=== PATIENT | female | born 1980 | race Caucasian/White ===

== ENCOUNTER → 2018-11-28 | Outpatient (CLI) | payer OTHER ==
[2018-11-29 22:34] LABS: THYROGLOBULIN AB < 0.9 IU/mL (<4.0)
== END ==
LOC: OD 11:13
PROVIDERS: ATTEND Surgery
DX: E04.1 Nontoxic single thyroid nodule (principal); D86.9 Sarcoidosis, unspecified
CPT/HCPCS: 36415; 86376; 86800

== ENCOUNTER 2019-01-07 05:37 | Inpatient (IN) | payer OTHER ==
[2018-12-31 09:43] LABS: HEMATOCRIT 40.1 % (36.0-47.0); HEMOGLOBIN 13.4 g/dL (12.0-15.5); MEAN CORPUSCULAR HEMOGLOBIN 27.3 pg (27.0-33.4); MEAN CORPUSCULAR HGB CONC 33.6 g/dL (32.0-36.0); MEAN CORPUSCULAR VOLUME 81 fl (80-97); PLATELET COUNT 292 10^3/uL (150-450); RED BLOOD COUNT 4.93 10^6/uL (3.72-5.28); RED CELL DISTRIBUTION WIDTH 13.6 % (11.5-14.0); WHITE BLOOD COUNT 4.7 10^3/uL (4.0-10.5)
[2018-12-31 10:15] LABS: ANION GAP 9 (5-19); BLOOD UREA NITROGEN 15 mg/dL (7-20); CALCIUM 9.7 mg/dL (8.4-10.2); CARBON DIOXIDE 27 mmol/L (22-30); CHLORIDE 103 mmol/L (98-107); GLUCOSE 93 mg/dL (75-110); POTASSIUM 4.5 mmol/L (3.6-5.0)
[~2019-01-07 05:37] MED LIST: CEFAZOLIN 1 GM/D5W RTU 1 GM/50 ML RTUPB IV ONE; CEFAZOLIN 1 GM/D5W RTU 1 GM/50 ML RTUPB IV PRN; LACTATED RINGERS 1000 ML IV PRN; LIDOCAINE 0.5% INJ-PF (5 MG/ML) 50 ML SDV SUBCUT PRN
[2019-01-07] MEDS ORDERED: HYDROMORPHONE HCL INJ/PF 2 MG/ML AMPULE ONE (06:44)
[2019-01-07] MEDS ORDERED: PROPOFOL INJ 200 MG/20 ML VIAL IV ONE (06:45)
[2019-01-07] MEDS ORDERED: MIDAZOLAM 2 MG/2 ML INJ ONE (06:45)
[2019-01-07] MEDS ORDERED: FENTANYL CITRATE INJ/PF 100 MCG/2 ML AMPUL ONE (06:45)
[2019-01-07] MEDS ORDERED: ACETAMINOPHEN 1,000 MG/100 ML RTUPB IV ONE (06:45)
[2019-01-07] MEDS ORDERED: LIDOCAINE 2% INJ (20 MG/ML) 20 ML MDV ONE (06:47)
[2019-01-07] MEDS ORDERED: MICROFIBRILLAR COLLAGEN 1 GM PACK ONE (07:37)
[2019-01-07] MEDS ORDERED: FENTANYL CITRATE INJ/PF 100 MCG/2 ML AMPUL IV PRN ×3 (08:02)
[2019-01-07] MEDS ORDERED: MEPERIDINE HCL/PF INJ 25 MG/1 ML DISP.SYRIN IV PRN (08:02)
[2019-01-07] MEDS ORDERED: DIPHENHYDRAMINE HCL 50 MG/ML VIAL IV PRN (08:02)
[2019-01-07] MEDS ORDERED: PROMETHAZINE HCL INJ 25 MG/1 ML VIAL IV PRN (08:02)
[2019-01-07] MEDS ORDERED: PROMETHAZINE HCL INJ 25 MG/1 ML VIAL ONE (08:04)
[2019-01-07] MEDS ORDERED: RINGERS SOLUTION,LACTATED 1,000 ML IV PRN (10:27)
[2019-01-07] MEDS ORDERED: KETOROLAC TROMETHAMINE INJ/PF 30 MG/1 ML SDV IV PRN (10:28)
[2019-01-07] MEDS ORDERED: ONDANSETRON HCL INJ/PF 4 MG/2 ML SDV IV PRN (10:28)
[2019-01-07] MEDS ORDERED: KETOROLAC TROMETHAMINE 10 MG TABLET PO PRN (10:28)
[2019-01-07] MEDS: FENTANYL CITRATE INJ/PF 100 MCG/2 ML AMPUL ONE ×2 (10:45→10:50)
--- NOTE | 2019-01-07 10:54 | Operative Report ---
Operative Report DATE OF SURGERY: 01/07/19 PREOPERATIVE DIAGNOSIS: 1. 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 2. Strong family history of thyroid cancer POSTOPERATIVE DIAGNOSIS: Same OPERATION: Total thyroidectomy with isthmusectomy. SURGEON: EUFEMIA DEWITT LINSEED OIL REFINER: JULIUS LU ANESTHESIA: GA TISSUE REMOVED OR ALTERED: Right thyroid lobe; left thyroid lobe with isthmus COMPLICATIONS: None ESTIMATED BLOOD LOSS: 40 cc INTRAOPERATIVE FINDINGS: See below PROCEDURE: The patient was seen in the preop holding area with the neck was marked for standard transcervical incision. She was then taken to the main operating where general anesthesia was induced. Patient placed in the supine position, arms tucked, neck extended, shoulder roll into position. The neck was supposed, prepped and draped in sterile fashion. Of note prior to prepping, we repeated ultrasonography which confirmed the right dominant thyroid nodule. There was no evidence of extrathyroidal pathology. Surgical plan and surgical timeout were conducted. A standard transcervical incision was made approximately 6, 7 cm in length. Superior and inferior skin and fascial flaps were raised including the platysma muscle. The strap muscles were then divided in midline. We approached the right thyroid lobe initially. The sternohyoid and sternothyroid muscles were elevated off the anterior surface of the thyroid lobe. There was no evidence of invasion of the nodule through the capsule or into the strap muscles. Chang clamps were placed in the substance of the thyroid lobe and the thyroid lobe was reflected medially. Inferior pole vasculature was taken down between clips. Superior pole was similarly taken down in a uneventful fashion, reflecting the muscles laterally to gain access. A suitable site for division of the right thyroid lobe from the isthmus was chosen. Again vessels were cauterized and/or clipped as encountered. The parenchyma of the isthmus was divided with electrocautery. Repositioning the clamps, we worked in a circumferential fashion, elevating the right posterior thyroid surface off of the anterior and lateral trachea. The right inferior parathyroid gland was felt to have been seen in the right lower neck and left in situ. The right upper parathyroid gland was felt to be in the vicinity of the approach of the inferior thyroid artery. We stayed right on gland, dividing the inferior thyroid branches to the mid and upper section of the lateral aspect of the thyroid lobe. We did not definitively visualize the recurrent laryngeal nerve on the right side. We stayed on gland, working in a circumferential fashion, dividing the final attachments. The amount of parenchyma left on the right side was negligible. The right lobe was brought onto the back table, all clips removed, and a long suture placed in the lateral position, short suture placed in the superior position and the specimen was sent to pathology. He was evaluated by Dr. Davis Jacobson, and felt to contain the target nodule, consistent with differentiated papillary carcinoma. It did not appear to be invading the capsule. We went back to the operative bed and check for any mechanical bleeding there was none. A small gauze sponge was placed in the recesses of the wound. We now turned our attention to the left lobe. Patient was repositioned, exposure to the left anterior neck optimized with retractors. The strap muscles were elevated off of the anterior surface of the left lobe. Chang clamps were placed in the substance of the gland, the gland was retracted medially, and inferior pole attachments taken down between clips. The isthmus and left lobe came off of the anterior surface of the trachea uneventfully. Superiorly the anatomy was very similar to the right side, again with the superior pole being taken down very close to parenchymal substance between clips. The arborization of the inferior thyroid artery was witnessed, and respective branches clipped and divided as encountered. We did in fact visualize the recur rent left laryngeal nerve which was in its predictable location. The left thyroid lobe posteriorly was closely adherent to Ward's ligament and we were careful to stay right on the gland at this point of the dissection. The left recurrent laryngeal nerve was kept in visualization during this entire dissection. No cautery was used. We are careful not to apply undue traction. The gland was freed up in its entirety, brought onto the back table, clips removed and again a long suture placed in the lateral position and a short the superior position We returned to the wound bed check for any mechanical bleeding there was none. Clips appear to be in satisfactory position. The nerve was in its anatomic position. We brought the patient had a cervical extension, applied Avitene to the recess of the wound, and found that the wound was stable. Sponge and needle counts are correct. The neck was then closed in layers with strap muscles with 2-0 Vicryl, platysma and subcutaneous tissue with 3-0 Vicryl, then skin with Dermabond glue. Patient taught procedure well, extubated, taken to recovery in stable condition. The physician project administrative assistant, Ms. Martínez, provided assistance during this case by: Assisting with retracting tissue, instillation of local anesthesia and closure of skin incisions.
[2019-01-07] MEDS ORDERED: KETOROLAC TROMETHAMINE INJ/PF 30 MG/1 ML SDV ONE (11:10)
[2019-01-07] MEDS ORDERED: ACETAMINOPHEN INJ/PF 1000 MG/100 ML SDV IV SCH (12:00)
[2019-01-07] MEDS ORDERED: ACETAMINOPHEN 1,000 MG/100 ML RTUPB IV SCH (12:00)
[2019-01-07] MEDS ORDERED: SUCCINYLCHOLINE CHLORIDE INJ 200 MG/10 ML VIAL ONE (15:09)
[2019-01-07] MEDS ORDERED: ONDANSETRON HCL INJ/PF 4 MG/2 ML SDV ONE (15:09)
[2019-01-07] MEDS ORDERED: DEXAMETHASONE SOD PHOSPHATE INJ 4 MG/1 ML VIAL ONE (15:09)
[2019-01-07] MEDS ORDERED: ROCURONIUM BROMIDE INJ 50 MG/5 ML VIAL IV ONE (15:09)
[2019-01-07] MEDS: OXYCODONE-ACETAMINOPHEN 5-325 MG TABLET PO PRN ×3 (15:36→23:55)
[2019-01-07] MEDS: DOCUSATE SODIUM 100 MG CAPSULE PO SCH (18:18)
[2019-01-08] MEDS: OXYCODONE-ACETAMINOPHEN 5-325 MG TABLET PO PRN ×3 (03:55→11:56)
[2019-01-08 05:57] LABS: CALCIUM 8.6 mg/dL (8.4-10.2)
[2019-01-08] MEDS ORDERED: LEVOTHYROXINE SODIUM 0.05 MG TABLET PO SCH (06:00)
[2019-01-08] MEDS: DOCUSATE SODIUM 100 MG CAPSULE PO SCH (09:37)
[2019-01-08 13:03] VITALS: BP 100/43
--- NOTE | 2019-01-15 11:49 | DISCHARGE SUMMARY E ---
Discharge Summary NAME: NAHID OLEA : 1980 AGE: 38Y ADMITTED: 01/07/2019 DISCHARGED: 01/08/2019 REASON FOR ADMISSION: Papillary carcinoma of the thyroid gland. SUMMARY OF HOSPITALIZATION: The patient is a 38-year-old white female with a history of dominant right thyroid nodule, fine needle aspiration findings consistent with papillary carcinomas. Brought to same day surgery for total thyroidectomy. The procedure was performed by Dr. Alfaro on 01/07/2019. The patient tolerated the procedure well without complication. Postoperatively she did well, diet was advanced slowly. Calcium levels remained in the 8.5 to 9.1 range. She had minimal dysphonia, but no evidence of significant hoarseness. By the following morning she was doing well and felt ready for discharge home. FINAL DIAGNOSIS: Dominant right thyroid nodule consistent with papillary carcinoma, status post total thyroidectomy. DISPOSITION: The patient was discharged home in the care of family. PLAN: Follow up with Dr. Alfaro in approximately 1, take 175 mcg of Synthroid daily and pain medication as prescribed. DICTATING PHYSICIAN: EUFEMIA ALFARO M.D. [id number] PHY#: [id number] ID: [id number] JOB#: [id number] ACCT: [id number] cc:EUFEMIA ALFARO M.D. >
== END 2019-01-08 13:30 | disposition home or self-care (01) | DRG 627 ==
LOC: INOR 05:37 → EDSTATUS 07:30 → 4N 12:24
PROVIDERS: ADMIT Surgery; ATTEND Surgery
PROC: 0GTH0ZZ Resection of Right Thyroid Gland Lobe, Open Approach (ICD-10-PCS; 2019-01-07)
PROC: 0GTG0ZZ Resection of Left Thyroid Gland Lobe, Open Approach (ICD-10-PCS; 2019-01-07)
PROC: 0GTJ0ZZ Resection of Thyroid Gland Isthmus, Open Approach (ICD-10-PCS; principal; 2019-01-07 07:30)
DX: C73 Malignant neoplasm of thyroid gland (principal); F41.9 Anxiety disorder, unspecified; E66.3 Overweight; I87.301 Chronic venous hypertension (idiopathic) without complications of right lower extremity; Z88.6 Allergy status to analgesic agent; Z80.9 Family history of malignant neoplasm, unspecified; Z98.84 Bariatric surgery status; Z82.3 Family history of stroke
CPT/HCPCS: 320; 36415; 80048; 82040; 82310; 84132; 84703; 85027; 88307; 88331; J0131; J0330; J0690; J1100; J1170; J1885; J2250; J2405; J2550; J2704; J3010; J3490; J7120

== ENCOUNTER → 2019-01-09 | Outpatient (CLI) | payer OTHER | LOC: OD 11:19 | PROVIDERS: ATTEND Surgery | DX: E83.51 Hypocalcemia (principal) | CPT/HCPCS: 36415; 82310 ==

== ENCOUNTER → 2019-01-15 | Outpatient (CLI) | payer OTHER | LOC: OD 12:20 | PROVIDERS: ATTEND Surgery | DX: Z98.890 Other specified postprocedural states (principal) | CPT/HCPCS: 36415; 82310 ==

== ENCOUNTER → 2019-02-07 | Outpatient (CLI) | payer OTHER ==
[2019-02-07 10:27] LABS: FREE T3 3.62 pg/mL (2.77-5.27); FREE T4 (FREE THYROXINE) 1.68 ng/dL (0.78-2.19)
[2019-02-07 10:41] LABS: THYROID STIMULATING HORMONE 0.73 uIU/mL (0.47-4.68)
== END ==
LOC: OD 09:00
PROVIDERS: ATTEND Surgery
DX: E89.0 Postprocedural hypothyroidism (principal)
CPT/HCPCS: 36415; 82310; 84439; 84443; 84481

== ENCOUNTER 2019-02-08 11:16 | Emergency (ER) | payer OTHER ==
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
[2019-02-08] MEDS ORDERED: ASPIRIN 81 MG TABLET, CHEWABLE PO ONE (11:42)
[2019-02-08 12:13] LABS: ABSOLUTE BASOPHILS # (AUTO) 0.1 10^3/uL (0.0-0.2); ABSOLUTE EOSINOPHILS # (AUTO) 0.1 10^3/uL (0.0-0.6); ABSOLUTE LYMPHOCYTES (AUTO) 1.6 10^3/uL (0.5-4.7); ABSOLUTE MONOCYTES (AUTO) 0.5 10^3/uL (0.1-1.4); ABSOLUTE NEUT (AUTO) 3.4 10^3/uL (1.7-8.2); BASOPHILS % (AUTO) 0.9 % (0-2); EOSINOPHILS % (AUTO) 1.6 % (0-6); HEMATOCRIT 41.2 % (36.0-47.0); HEMOGLOBIN 13.5 g/dL (12.0-15.5); LYMPHOCYTES % (AUTO) 28.7 % (13-45); MEAN CORPUSCULAR HEMOGLOBIN 26.8 pg (27.0-33.4); MEAN CORPUSCULAR HGB CONC 32.9 g/dL (32.0-36.0); MEAN CORPUSCULAR VOLUME 82 fl (80-97); MONOCYTES % (AUTO) 9.1 % (3-13); PLATELET COUNT 328 10^3/uL (150-450); RED BLOOD COUNT 5.05 10^6/uL (3.72-5.28); SEGMENTED NEUTROPHILS % (AUTO) 59.7 % (42-78); TOTAL CELLS COUNTED % (AUTO) 100 %; WHITE BLOOD COUNT 5.7 10^3/uL (4.0-10.5)
[2019-02-08 12:31] LABS: ALANINE AMINOTRANSFERASE 30 U/L (9-52); ALBUMIN 3.9 g/dL (3.5-5.0); ALKALINE PHOSPHATASE 27 U/L (38-126); ANION GAP 12 (5-19); ASPARTATE AMINO TRANSFERASE 27 U/L (14-36); BILIRUBIN,DIRECT 0.2 mg/dL (0.0-0.4); BILIRUBIN,TOTAL 0.4 mg/dL (0.2-1.3); BLOOD UREA NITROGEN 10 mg/dL (7-20); CALCIUM 9.1 mg/dL (8.4-10.2); CARBON DIOXIDE 25 mmol/L (22-30); CHLORIDE 103 mmol/L (98-107); CREATINE KINASE 50 U/L (30-135); GLUCOSE 109 mg/dL (75-110); POTASSIUM 3.9 mmol/L (3.6-5.0); SODIUM 139.6 mmol/L (137-145)
--- NOTE | 2019-02-08 12:33 | RADIOLOGY REPORT (SQ) ---
EXAM DESCRIPTION: CHEST 2 VIEWS COMPLETED DATE/TIME: 02/08/2019 12:15 pm REASON FOR STUDY: chest pain COMPARISON: 12/23/2009 EXAM PARAMETERS: NUMBER OF VIEWS: two views TECHNIQUE: Digital Frontal and Lateral radiographic views of the chest acquired. RADIATION DOSE: NA LIMITATIONS: none FINDINGS: LUNGS AND PLEURA: No opacities, masses or pneumothorax. No pleural effusion. MEDIASTINUM AND HILAR STRUCTURES: No masses or contour abnormalities. HEART AND VASCULAR STRUCTURES: Heart normal size. No evidence for failure. BONES: No acute findings. HARDWARE: None in the chest. OTHER: No other significant finding. IMPRESSION: NO ACUTE RADIOGRAPHIC FINDING IN THE CHEST. TECHNICAL DOCUMENTATION: JOB ID: [id number] [employer]- All Rights Reserved Reading location - IP/workstation name: [email or web address]
[2019-02-08 12:44] LABS: CREATINE KINASE MB < 0.22 ng/mL (<4.55); TROPONIN I < 0.012 ng/mL
[2019-02-08 12:48] LABS: FREE T3 3.41 pg/mL (2.77-5.27); FREE T4 (FREE THYROXINE) 1.63 ng/dL (0.78-2.19)
[2019-02-08 13:02] LABS: THYROID STIMULATING HORMONE 0.65 uIU/mL (0.47-4.68)
[2019-02-08 13:51] LABS: APPEARANCE,URINE CLEAR; BILIRUBIN,URINE NEGATIVE (NEGATIVE); COLOR,URINE STRAW; GLUCOSE, URINE NEGATIVE (NEGATIVE); KETONES,URINE NEGATIVE (NEGATIVE); LEUKOCYTE ESTERASE,URINE NEGATIVE (NEGATIVE); NITRITE,URINE NEGATIVE (NEGATIVE); PROTEIN,URINE NEGATIVE (NEGATIVE); URINE SPECIFIC GRAVITY 1.006; UROBILINOGEN,URINE NEGATIVE mg/dL (<2.0)
[2019-02-08 13:59] LABS: URINE AMPHETAMINES SCREEN NEGATIVE; URINE BARBITURATES SCREEN NEGATIVE; URINE BENZODIAZEPINES SCREEN NEGATIVE; URINE COCAINE SCREEN NEGATIVE; URINE MARIJUANA (THC) SCREEN NEGATIVE; URINE METHADONE SCREEN NEGATIVE; URINE PHENCYCLIDINE SCREEN NEGATIVE
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
[2019-02-08 15:46] VITALS: BP 109/95
--- NOTE | 2019-02-08 22:36 | EKG REPORT ---
SEVERITY:- OTHERWISE NORMAL ECG - SINUS RHYTHM LOW VOLTAGE IN FRONTAL LEADS : Confirmed by: Linda Adams 08-Feb-2019 22:35:21
== END 2019-02-08 16:27 | disposition home or self-care (01) ==
LOC: ER 11:16
DX: R00.2 Palpitations (principal); R07.9 Chest pain, unspecified; R06.02 Shortness of breath; E89.0 Postprocedural hypothyroidism; Z98.890 Other specified postprocedural states; Z79.899 Other long term (current) drug therapy
CPT/HCPCS: 36415; 71046; 80053; 80307; 81001; 82550; 82553; 84439; 84443; 84481; 84484; 85025; 93005; 93010; 99285

== ENCOUNTER 2019-06-15 21:06 | Emergency (ER) | payer OTHER ==
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
[2019-06-15 21:41] LABS: ABSOLUTE BASOPHILS # (AUTO) 0.1 10^3/uL (0.0-0.2); ABSOLUTE EOSINOPHILS # (AUTO) 0.2 10^3/uL (0.0-0.6); ABSOLUTE LYMPHOCYTES (AUTO) 2.1 10^3/uL (0.5-4.7); ABSOLUTE NEUT (AUTO) 3.9 10^3/uL (1.7-8.2); BASOPHILS % (AUTO) 0.8 % (0-2); EOSINOPHILS % (AUTO) 2.2 % (0-6); HEMATOCRIT 40.7 % (36.0-47.0); HEMOGLOBIN 13.4 g/dL (12.0-15.5); LYMPHOCYTES % (AUTO) 29.4 % (13-45); MEAN CORPUSCULAR HEMOGLOBIN 26.5 pg (27.0-33.4); MEAN CORPUSCULAR VOLUME 81 fl (80-97); MONOCYTES % (AUTO) 13.5 % (3-13); PLATELET COUNT 347 10^3/uL (150-450); RED BLOOD COUNT 5.06 10^6/uL (3.72-5.28); RED CELL DISTRIBUTION WIDTH 13.9 % (11.5-14.0); SEGMENTED NEUTROPHILS % (AUTO) 54.1 % (42-78); TOTAL CELLS COUNTED % (AUTO) 100 %; WHITE BLOOD COUNT 7.2 10^3/uL (4.0-10.5)
[2019-06-15 21:59] LABS: ALBUMIN 4.1 g/dL (3.5-5.0); ALKALINE PHOSPHATASE 22 U/L (38-126); ANION GAP 12 (5-19); ASPARTATE AMINO TRANSFERASE 17 U/L (14-36); BILIRUBIN,DIRECT 0.1 mg/dL (0.0-0.4); BILIRUBIN,TOTAL 0.2 mg/dL (0.2-1.3); BLOOD UREA NITROGEN 16 mg/dL (7-20); CALCIUM 9.2 mg/dL (8.4-10.2); CARBON DIOXIDE 24 mmol/L (22-30); CHLORIDE 102 mmol/L (98-107); POTASSIUM 3.9 mmol/L (3.6-5.0); TOTAL PROTEIN 7.1 g/dL (6.3-8.2)
[2019-06-15 22:02] LABS: GLUCOSE 56 mg/dL (75-110)
[2019-06-15 22:41] LABS: APPEARANCE,URINE CLEAR; BILIRUBIN,URINE NEGATIVE (NEGATIVE); COLOR,URINE STRAW; GLUCOSE, URINE NEGATIVE (NEGATIVE); KETONES,URINE NEGATIVE (NEGATIVE); LEUKOCYTE ESTERASE,URINE TRACE (NEGATIVE); NITRITE,URINE NEGATIVE (NEGATIVE); PROTEIN,URINE NEGATIVE (NEGATIVE); URINE SPECIFIC GRAVITY 1.006; UROBILINOGEN,URINE NEGATIVE mg/dL (<2.0)
--- NOTE | 2019-06-15 22:50 | RADIOLOGY REPORT (SQ) ---
EXAM DESCRIPTION: CLINICAL HISTORY: 39 years Female, near syncope COMPARISON: 02/08/2019. FINDINGS: Borderline heart size. Prominence of the main pulmonary artery. No suspicious mediastinal widening. No acute lung pleural bone abnormalities. IMPRESSION: Suspected dilated main pulmonary artery possibly representing pulmonary hypertension. No acute findings.
[2019-06-16] MEDS ORDERED: PROMETHAZINE HCL 25 MG TABLET PO ONE
[2019-06-16 00:26] VITALS: BP 112/76
--- NOTE | 2019-06-16 08:12 | EKG REPORT ---
SEVERITY:- NORMAL ECG - SINUS RHYTHM : Confirmed by: Saira Dumont MD 16-Jun-2019 08:12:09
== END 2019-06-16 00:26 | disposition home or self-care (01) ==
LOC: ER 21:06
DX: E16.2 Hypoglycemia, unspecified (principal); R11.0 Nausea; R55 Syncope and collapse; Z88.6 Allergy status to analgesic agent; Z98.84 Bariatric surgery status
CPT/HCPCS: 36415; 71045; 80053; 81001; 82962; 83690; 84484; 84703; 85025; 93005; 93010

== ENCOUNTER 2019-07-31 23:08 | Emergency (ER) | payer OTHER ==
[2019-07-31] MEDS ORDERED: ONDANSETRON HCL INJ/PF 4 MG/2 ML SDV IV ONE (23:22)
[2019-07-31] MEDS ORDERED: NORMAL SALINE 1000 ML 1,000 ML IV ONE (23:22)
[2019-07-31] MEDS ORDERED: FENTANYL CITRATE INJ/PF 100 MCG/2 ML AMPUL IV ONE (23:22)
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
[2019-07-31 23:48] LABS: ABSOLUTE BASOPHILS # (AUTO) 0.1 10^3/uL (0.0-0.2); ABSOLUTE EOSINOPHILS # (AUTO) 0.1 10^3/uL (0.0-0.6); ABSOLUTE LYMPHOCYTES (AUTO) 1.3 10^3/uL (0.5-4.7); ABSOLUTE MONOCYTES (AUTO) 0.7 10^3/uL (0.1-1.4); ABSOLUTE NEUT (AUTO) 4.6 10^3/uL (1.7-8.2); BASOPHILS % (AUTO) 0.7 % (0-2); EOSINOPHILS % (AUTO) 1.3 % (0-6); HEMATOCRIT 37.9 % (36.0-47.0); HEMOGLOBIN 12.4 g/dL (12.0-15.5); LYMPHOCYTES % (AUTO) 19.7 % (13-45); MEAN CORPUSCULAR HGB CONC 32.6 g/dL (32.0-36.0); MEAN CORPUSCULAR VOLUME 80 fl (80-97); MONOCYTES % (AUTO) 10.9 % (3-13); PLATELET COUNT 277 10^3/uL (150-450); RED BLOOD COUNT 4.75 10^6/uL (3.72-5.28); RED CELL DISTRIBUTION WIDTH 14.4 % (11.5-14.0); SEGMENTED NEUTROPHILS % (AUTO) 67.4 % (42-78); TOTAL CELLS COUNTED % (AUTO) 100 %; WHITE BLOOD COUNT 6.9 10^3/uL (4.0-10.5)
[2019-08-01] LABS: ALBUMIN 3.8 g/dL (3.5-5.0); ALKALINE PHOSPHATASE 23 U/L (38-126); ANION GAP 10 (5-19); ASPARTATE AMINO TRANSFERASE 18 U/L (14-36); BILIRUBIN,DIRECT 0.2 mg/dL (0.0-0.4); BILIRUBIN,TOTAL 0.3 mg/dL (0.2-1.3); BLOOD UREA NITROGEN 15 mg/dL (7-20); CALCIUM 8.8 mg/dL (8.4-10.2); CARBON DIOXIDE 21 mmol/L (22-30); CHLORIDE 107 mmol/L (98-107); GLUCOSE 115 mg/dL (75-110); POTASSIUM 4.2 mmol/L (3.6-5.0); TOTAL PROTEIN 6.7 g/dL (6.3-8.2)
--- NOTE | 2019-08-01 00:58 | RADIOLOGY REPORT (SQ) ---
EXAM DESCRIPTION: CT ABDOMEN PELVIS WITH IV CONTRAST COMPLETED DATE/TME: 07/31/2019 23:23 CLINICAL HISTORY: 39 years, Female, RLQ pain COMPARISON: None. TECHNIQUE: Axial CT images of the abdomen and pelvis were obtained after the administration of IV contrast. DL 2384 Images stored on PACS. All CT scanners at this facility use dose modulation, iterative reconstruction, and/or weight based dosing when appropriate to reduce radiation dose to as low as reasonably achievable (ALARA). [facility]: Dose Right [facility]: CareDose [facility]: Dose Right [facility]: Teradose 4D [facility]: [employer] LIMITATIONS: None. FINDINGS: Lower chest: Partially imaged. Lung bases: Unremarkable. Cardiac apex: Unremarkable. Solid abdominal viscera: Liver: Unremarkable. Gallbladder: Unremarkable. Pancreas: Unremarkable. Spleen: Unremarkable. Adrenal glands: Unremarkable. Right kidney: No hydronephrosis. Left kidney: No hydronephrosis. Urinary bladder: Unremarkable. Abdominal aorta: Unremarkable. Peritoneal: Free fluid: Mild. Free air: None. Other: No pathologic sized lymph nodes in the upper abdomen. IVC filter in place. Bowel: Stomach: Changes of a gastric bypass Small bowel: Unremarkable. Appendix: Unremarkable. Colon: Unremarkable. Rectum: Unremarkable. Uterus: Unremarkable. There is a 3.7 x 3.7 cm right ovarian dermoid. Bones: Unremarkable. IMPRESSION: Right ovarian dermoid. Normal appendix. TECHNICAL DOCUMENTATION: Quality ID # [id number]: Final reports with documentation of one or more dose reduction techniques (e.g., Automated exposure control, adjustment of the mA and/or kV according to patient size, use of iterative reconstruction technique) copyright 2011 [employer]- All Rights Reserved
[2019-08-01] MEDS ORDERED: FENTANYL CITRATE INJ/PF 100 MCG/2 ML AMPUL IV ONE (01:20)
[2019-08-01 01:41] LABS: APPEARANCE,URINE CLEAR; BILIRUBIN,URINE NEGATIVE (NEGATIVE); COLOR,URINE STRAW; GLUCOSE, URINE NEGATIVE (NEGATIVE); KETONES,URINE NEGATIVE (NEGATIVE); LEUKOCYTE ESTERASE,URINE NEGATIVE (NEGATIVE); NITRITE,URINE NEGATIVE (NEGATIVE); PROTEIN,URINE NEGATIVE (NEGATIVE); URINE SPECIFIC GRAVITY 1.024; UROBILINOGEN,URINE NEGATIVE mg/dL (<2.0)
--- NOTE | 2019-08-01 02:48 | RADIOLOGY REPORT (SQ) ---
EXAM DESCRIPTION: US PELVIS TRANSVAGINAL COMPLETED DATE/TME: 08/01/2019 01:19 CLINICAL HISTORY: 39 years Female, dermoid, right pelvic pain, vomiting; ? torsion Comparison: Concurrent CT. Technique: Transvaginal. LIMITATIONS: None. FINDINGS: 7.4 x 5.3 x 3.2 cm right ovary contains a 3.5 x 3.4 x 5.3 cm dermoid including fat and calcific components as correlated with concurrent CT. 0.8 x 0.9 x 0.7 cm hypoechoic ovoid submucosal lesion of the left uterine wall may indicate a leiomyoma or adenomyoma. 8.5-cm uterus, 1.2-cm endometrial stripe thickness, 7.4-cm right ovary, and 3.2-cm left ovary appear otherwise unremarkable in size, shape, echotexture, and vascularity. Small free fluid. IMPRESSION: 1. 5.3 cm right ovarian dermoid. There is increased risk for developing right ovarian torsion. 2. 0.9 cm leiomyoma or adenomyoma of the uterine wall. 3. Small free fluid.
[2019-08-01] MEDS ORDERED: HYDROCODONE/ACETAMINOPHEN 5-325 MG (6 TAB/ER DISP) PO PRN (03:51)
[2019-08-01] MEDS ORDERED: ONDANSETRON ODT 4 MG TAB (6 TAB/ER DISP) PO PRN (03:52)
[2019-08-01 04:13] VITALS: BP 113/62
== END 2019-08-01 04:24 | disposition home or self-care (01) ==
LOC: ER 23:08
DX: D27.0 Benign neoplasm of right ovary (principal); E89.0 Postprocedural hypothyroidism; Z98.84 Bariatric surgery status; Z88.5 Allergy status to narcotic agent; Z88.8 Allergy status to other drugs, medicaments and biological substances
CPT/HCPCS: 36415; 84703; 85025; 80053; 81001; 76830; 93976; 74177; J3010 ×2; J2405; J7030; 96361; 96374; 96375; 96376; 99284

== ENCOUNTER 2019-08-09 17:22 | Emergency (ER) | payer OTHER ==
[2019-08-09 17:43] VITALS: BP 141/72
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
[2019-08-09 18:23] LABS: ABSOLUTE EOSINOPHILS # (AUTO) 0.1 10^3/uL (0.0-0.6); ABSOLUTE LYMPHOCYTES (AUTO) 1.4 10^3/uL (0.5-4.7); ABSOLUTE MONOCYTES (AUTO) 0.7 10^3/uL (0.1-1.4); ABSOLUTE NEUT (AUTO) 3.4 10^3/uL (1.7-8.2); BASOPHILS % (AUTO) 0.7 % (0-2); EOSINOPHILS % (AUTO) 2.3 % (0-6); HEMATOCRIT 40.1 % (36.0-47.0); HEMOGLOBIN 13.3 g/dL (12.0-15.5); LYMPHOCYTES % (AUTO) 24.3 % (13-45); MEAN CORPUSCULAR HEMOGLOBIN 26.7 pg (27.0-33.4); MEAN CORPUSCULAR HGB CONC 33.2 g/dL (32.0-36.0); MEAN CORPUSCULAR VOLUME 80 fl (80-97); MONOCYTES % (AUTO) 13.1 % (3-13); PLATELET COUNT 321 10^3/uL (150-450); RED BLOOD COUNT 4.99 10^6/uL (3.72-5.28); RED CELL DISTRIBUTION WIDTH 14.4 % (11.5-14.0); SEGMENTED NEUTROPHILS % (AUTO) 59.6 % (42-78); TOTAL CELLS COUNTED % (AUTO) 100 %; WHITE BLOOD COUNT 5.7 10^3/uL (4.0-10.5)
[2019-08-09 18:41] LABS: ALBUMIN 3.8 g/dL (3.5-5.0); ALKALINE PHOSPHATASE 22 U/L (38-126); ANION GAP 10 (5-19); ASPARTATE AMINO TRANSFERASE 17 U/L (14-36); BILIRUBIN,DIRECT 0.2 mg/dL (0.0-0.4); BILIRUBIN,TOTAL 0.2 mg/dL (0.2-1.3); BLOOD UREA NITROGEN 13 mg/dL (7-20); CALCIUM 8.8 mg/dL (8.4-10.2); CARBON DIOXIDE 24 mmol/L (22-30); CHLORIDE 108 mmol/L (98-107); GLUCOSE 98 mg/dL (75-110); TOTAL PROTEIN 6.7 g/dL (6.3-8.2)
[2019-08-09 18:48] LABS: APPEARANCE,URINE CLEAR; BILIRUBIN,URINE NEGATIVE (NEGATIVE); COLOR,URINE YELLOW; GLUCOSE, URINE NEGATIVE (NEGATIVE); KETONES,URINE NEGATIVE (NEGATIVE); LEUKOCYTE ESTERASE,URINE NEGATIVE (NEGATIVE); NITRITE,URINE NEGATIVE (NEGATIVE); PROTEIN,URINE NEGATIVE (NEGATIVE); URINE SPECIFIC GRAVITY 1.011; UROBILINOGEN,URINE NEGATIVE mg/dL (<2.0)
[2019-08-09 18:51] LABS: ADD MANUAL MICROSCOPIC YES
--- NOTE | 2019-08-09 19:02 | RADIOLOGY REPORT (SQ) ---
EXAM DESCRIPTION: U/S NON OB PEL TV W/DOPPLER COMPLETED DATE/TIME: 08/09/2019 6:36 pm REASON FOR STUDY: Dermoid cyst scheduled for surgery tomorrow increa COMPARISON: Pelvic ultrasound 08/01/2019 TECHNIQUE: Dynamic and static grayscale images acquired of the pelvis via transvaginal approach and recorded on PACS. Additional selected color Doppler and spectral images recorded. LIMITATIONS: None. FINDINGS: UTERUS: Contour normal. No mass. ENDOMETRIAL STRIPE: No focal or generalized thickening. No masses. CERVIX: No nabothian cysts. RIGHT OVARY AND DOPPLER: Unchanged enlargement of the right ovary containing approximately 5 cm compl ex fat, fluid and calcium containing mass compatible with a dermoid cyst. Normal arterial vascular f low without evidence for torsion. LEFT OVARY AND DOPPLER: Normal size. No worrisome masses. Normal arterial vascular flow without evide nce for torsion. FREE FLUID: None noted. OTHER: No other significant finding. MEASUREMENTS: UTERUS: 8.1 x 3.2 x 5.4 cm ENDOMETRIAL STRIPE: 4.3 mm RIGHT OVARY: 5.5 x 3.5 x 3.1 cm LEFT OVARY: 2.9 x 2.8 x 2.3 cm IMPRESSION: Unchanged size of an approximately 5 cm right dermoid cyst without evidence of ovarian t orsion or other acute pelvic findings. TECHNICAL DOCUMENTATION: JOB ID: [id number]- All Rights Reserved Rev-02/21 Reading location - IP/workstation name: [email or web address]
[2019-08-09] MEDS ORDERED: ONDANSETRON HCL INJ/PF 4 MG/2 ML SDV IV ONE (20:10)
[2019-08-09] MEDS ORDERED: FENTANYL CITRATE INJ/PF 100 MCG/2 ML AMPUL IV PRN ×2 (20:10→22:07)
[2019-08-09] MEDS ORDERED: NORMAL SALINE 1000 ML 1,000 ML IV ONE (20:15)
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
--- NOTE | 2019-08-09 21:43 | RADIOLOGY REPORT (SQ) ---
EXAM DESCRIPTION: CT ABDOMEN PELVIS WITH IV CONTRAST COMPLETED DATE/TME: 08/09/2019 20:12 CLINICAL HISTORY: abdominal pain COMPARISON: August 01, 2019 TECHNIQUE: Contiguous axial images of the abdomen and pelvis were obtained after the administration of intravenous contrast followed by reconstruction images.This exam was performed according to our departmental dose-optimization program, which includes automated exposure control, adjustment of the mA and/or kV according to patient size and/or use of iterative reconstruction technique. FINDINGS: Linear opacities within the lungs may represent scar versus subsegmental atelectasis. Patient is status post gastric bypass surgery. There is an inferior vena cava filter. Calcifications within the pelvis compatible with phleboliths. There is a trace of free fluid within the pelvis which could be physiologic. 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 The liver, spleen, pancreas and kidneys are within normal limits. There is no hydronephrosis or renal stones. The gallbladder is unremarkable by CT criteria. Adrenal glands are within normal limits. Aorta is of normal caliber and tapering. There is no free fluid in the abdomen. There is no bowel obstruction. There is no stranding of the mesenteric fat to suggest an inflammatory response. The appendix is within normal limits. There is no pericecal inflammation. IMPRESSION: No acute intra-abdominal abnormality.
== END 2019-08-09 22:36 | disposition home or self-care (01) ==
LOC: ER 17:22
DX: D27.0 Benign neoplasm of right ovary (principal); R11.0 Nausea; R10.2 Pelvic and perineal pain; R10.31 Right lower quadrant pain; G89.29 Other chronic pain; Z79.891 Long term (current) use of opiate analgesic; R10.813 Right lower quadrant abdominal tenderness; Z98.84 Bariatric surgery status; Z88.5 Allergy status to narcotic agent; Z88.8 Allergy status to other drugs, medicaments and biological substances
CPT/HCPCS: 36415; 85025; 80053; 81001; 76830; 93976; 74177; J3010; J2405; J7030

== ENCOUNTER 2019-08-10 08:52 | Day surgery (SDC) | payer OTHER ==
[2019-08-10] MEDS ORDERED: SUCCINYLCHOLINE CHLORIDE INJ 200 MG/10 ML VIAL ONE (11:02)
[2019-08-10] MEDS ORDERED: NEOSTIGMINE METHYLSULFATE 10 MG/10 ML VIAL ONE (11:02)
[2019-08-10] MEDS ORDERED: ONDANSETRON HCL INJ/PF 4 MG/2 ML SDV ONE (11:02)
[2019-08-10] MEDS ORDERED: LIDOCAINE 2% INJ-PF (20 MG/ML) 2 ML AMPUL ONE (11:02)
[2019-08-10] MEDS ORDERED: ROCURONIUM BROMIDE INJ 50 MG/5 ML VIAL IV ONE (11:02)
[2019-08-10] MEDS ORDERED: GLYCOPYRROLATE 1 MG/5 ML VIAL ONE (11:02)
[2019-08-10] MEDS ORDERED: DEXAMETHASONE SOD PHOSPHATE INJ 4 MG/1 ML VIAL ONE (11:02)
[2019-08-10] MEDS ORDERED: KETOROLAC TROMETHAMINE 60 MG/2 ML SDV ONE (11:02)
[2019-08-10] MEDS ORDERED: FENTANYL CITRATE INJ/PF 250 MCG/5 ML AMPULE ONE (11:38)
[2019-08-10] MEDS ORDERED: MIDAZOLAM 2 MG/2 ML INJ ONE (11:38)
[2019-08-10] MEDS ORDERED: PROPOFOL INJ 200 MG/20 ML VIAL IV ONE (11:39)
[2019-08-10] MEDS ORDERED: FENTANYL CITRATE INJ/PF 100 MCG/2 ML AMPUL ONE (11:57)
[2019-08-10] MEDS ORDERED: FENTANYL CITRATE INJ/PF 100 MCG/2 ML AMPUL IV PRN ×3 (12:38)
[2019-08-10] MEDS ORDERED: PROMETHAZINE HCL INJ 25 MG/1 ML VIAL IV PRN ×3 (12:38→15:01)
[2019-08-10] MEDS ORDERED: MEPERIDINE HCL/PF INJ 25 MG/1 ML DISP.SYRIN IV PRN (12:38)
[2019-08-10] MEDS ORDERED: DIPHENHYDRAMINE HCL 50 MG/ML VIAL IV PRN (12:38)
[2019-08-10] MEDS: BUPIVACAINE HCL 0.25 % INJ/PF (2.5 MG/1 ML) 30 ML VIAL ONE ×2 (13:04→13:30)
[2019-08-10] MEDS: MEPERIDINE HCL/PF INJ 25 MG/1 ML DISP.SYRIN ONE ×2 (14:04→14:09)
[2019-08-10] MEDS: FENTANYL CITRATE INJ/PF 100 MCG/2 ML AMPUL ONE ×2 (14:13→14:16)
[2019-08-10] MEDS ORDERED: ACETAMINOPHEN 1,000 MG/100 ML RTUPB IV ONE (14:23)
[2019-08-10] MEDS ORDERED: LORAZEPAM INJ 2 MG/1 ML VIAL ONE (14:28)
--- NOTE | 2019-08-10 14:39 | Operative Report ---
Operative Report DATE OF SURGERY: 08/10/19 PREOPERATIVE DIAGNOSIS: 1. Right dermoid cyst. 2. Pelvic pain POSTOPERATIVE DIAGNOSIS: Same OPERATION: Diagnostic laparoscopy with right salpingo-oophorectomy SURGEON: DELVIS SANTA ANESTHESIA: GA TISSUE REMOVED OR ALTERED: Right fallopian tube and ovary with dermoid cyst COMPLICATIONS: None QUANTITATIVE BLOOD LOSS: 25 INTRAOPERATIVE FINDINGS: Normal-appearing uterus and bilateral fallopian tubes; normal-appearing left ovary; right dermoid cyst measuring approximately 5 x 5 cm incorporated into the right ovary PROCEDURE: The patient was taken to the operating room where general anesthesia was obtained without difficulty. She was then placed in dorsal supine lithotomy position and prepped and draped in the normal sterile fashion. [place] speculum was then placed in the patient's vagina and the anterior lip of the cervix grasped with a single-tooth tenaculum. An acorn uterine manipulator was then advanced into the uterus to provide a means of manipulation of the uterus. The speculum and tenaculum were then removed from the patient's cervix and vagina. Attention was then turned to the patient's abdomen where a 5 mm skin incision was then made in the umbilicus. The Optiview trocar with 0 laparoscope was then advanced without difficulty under direct visualization with the Optiview trocar. This was performed while tenting the abdominal wall. Intraperitoneal placement was confirmed by the direct visualization. Pneumoperitoneum was then obtained with approximately 4 L carbon dioxide gas. Survey of the patient's abdomen and pelvis revealed findings as noted above. Two 5 mm lateral ports were placed under direct visualization. The umbilical port was then converted to a 11 mm port, in order to accommodate the Endo ADRIANNE bag. The right fallopian tube was then identified and followed out to the fimbriated end. Survey showed a large right dermoid cyst measuring approximately 5 x 5 cm with some normal appearing ovary attached. The left fallopian tube and ovary appeared normal. Pictures were taken. The right fallopian tube and ovary were then grasped with a laparoscopic grasper. The Enseal was used to transect the right fallopian tube, dermoid cyst and ovary. The ovary was removed secondary to the fact that I could not tell where the dermoid cyst ended. I did not want to leave behind any of the dermoid cyst. The pedicle was hemostatic. The right fallopian tube and ovary were then placed inside the Endo ADRIANNE bag. The umbilical incision was extended in order to remove the Endo ADRIANNE bag. After the Endo ADRIANNE a bag was removed, the trocar was replaced in the umbilical incision and the abdomen was irrigated. Hemostasis once again, was noted. Pictures were taken before and after. The CO2 gas was then turned off and allowed to escape from the patient's abdomen. All trocars were then removed. The fascia was repaired at the umbilicus with 0 Vicryl.. The skin at all trocar sites were closed with 4-0 Monocryl in a subcuticular fashion with overlying Dermabond. No antibiotics were indicated for this procedure. After completion of skin closure of the trocar sites attention was then turned to the vagina where the acorn uterine manipulator was removed and the bivalve speculum was replaced. Monsel's solution was applied to the tenaculum sites for hemostasis and the speculum was removed. Sponge, lap, needle and instrument counts were correct 3. The patient tolerated the procedure well and was taken to the recovery area awake and in stable condition.
[2019-08-10] MEDS ORDERED: OXYCODONE-ACETAMINOPHEN 5-325 MG TABLET PO PRN (14:58)
[2019-08-10] MEDS ORDERED: OXYCODONE HCL IR 5 MG TABLET PO PRN (14:59)
[2019-08-10] MEDS ORDERED: ONDANSETRON HCL INJ/PF 4 MG/2 ML SDV IV PRN (15:01)
[2019-08-10] MEDS ORDERED: OXYCODONE HCL IR 5 MG TABLET ONE (15:09)
[2019-08-10] MEDS ORDERED: OXYCODONE-ACETAMINOPHEN 5-325 MG TABLET ONE (15:09)
[2019-08-10 17:22] VITALS: BP 116/74
== END 2019-08-10 16:30 | disposition home or self-care (01) ==
LOC: OROUT 08:52
PROVIDERS: ATTEND Obstetrics & Gynecology
DX: D27.0 Benign neoplasm of right ovary (principal); Z85.850 Personal history of malignant neoplasm of thyroid; E89.0 Postprocedural hypothyroidism; Z86.718 Personal history of other venous thrombosis and embolism
CPT/HCPCS: 86900; 86901; 36415; 86850; 82962; 81025; 88304 ×2; 58661; J2250; J3490 ×3; J1100; J1885; J3010 ×2; J2175; J2710; J2060; J0330; J2405; J2704; J0131